=== PATIENT | female | born 1940 ===

== ENCOUNTER 2021-11-24 03:06 | Emergency (ER) | payer MEDICARE ==
[2021-11-24] MEDS ORDERED: MORPHINE 2 MG/ML CARPUJECT IVP STA (03:25)
[2021-11-24 03:31] LABS: BASOPHILS % (AUTO) 0.8 %; EOSINOPHILS # (AUTO) 0.2 10^3/uL (0.0-0.7); HCT - HEMATOCRIT 41.1 % (37.0-47.0); HGB - HEMOGLOBIN 14.1 g/dL (12.0-16.0); LYMPHOCYTES # (AUTO) 1.9 10^3/uL (1.5-3.5); MEAN CORPUSCULAR HEMOGLOBIN 33.7 pg (27.0-31.0); MEAN CORPUSCULAR HGB CONC 34.3 g/dL (32.0-36.0); MEAN CORPUSCULAR VOLUME 98.3 fL (81.0-99.0); MEAN PLATELET VOLUME 9.9 fL (7.9-10.8); MONOCYTES # (AUTO) 0.5 10^3/uL (0.0-1.0); MONOCYTES % (AUTO) 9.7 %; NEUTROPHILS # (AUTO) 2.3 10^3/uL (1.5-6.6); NEUTROPHILS % (AUTO) 46.3 %; PLT - PLATELET COUNT 220 10^3/uL (130-450); RED BLOOD COUNT 4.18 10^6/uL (4.20-5.40); RED CELL DISTRIBUTION WIDTH 12.1 % (12.0-15.0)
[2021-11-24] MEDS ORDERED: CLOPIDOGREL 300 MG TABLET PO STA (03:31)
[2021-11-24] MEDS ORDERED: ASPIRIN CHEW 81 MG TABLET PO STA (03:31)
--- NOTE | 2021-11-24 03:39 | ED Physician Documentation ---
PD HPI CHEST PAIN - Stated complaint Stated Complaint: nerve spasm - Chief complaint Chief Complaint: Cardiac - History obtained from History obtained from: Patient - History of Present Illness Timing - onset: Last night Location: Left chest, Left neck Radiation: Jaw Associated symptoms: Other (belching) - Additional information Additional information: 81-year-old female with history of neck and back pain, HTN, HLD presents by private vehicle for severe left-sided chest pain and neck pain that woke her from sleep at 0245 this morning. Patient states the pain is aching, constant with intermittent worsening, radiates upwards into her left jaw. States that she has had similar, intermittent, self-resolving pains in 2 days but never this severe. It woke her up in the middle the night and she told her to drive her into the ER. Took a baby aspirin earlier today. EKG obtained shortly after triage is concerning for possible inferior STEMI. PD PAST MEDICAL HISTORY - Past Medical History Past Medical History: Yes - Allergies Allergies/Adverse Reactions: Allergies Allergy/AdvReac Type Severity Reaction Status Date / Time No Known Drug Allergies Allergy Verified 11/24/21 03:21 PD ED PE NORMAL - Vitals Vital signs reviewed: Yes - General General: Alert and oriented X 3, Well developed/nourished, Other (uncomfortable, in pain) - HEENT HEENT: Atraumatic, PERRL, EOMI - Neck Neck: Supple, no meningeal sign, No bony TTP, No adenopathy - Cardiac Cardiac: RRR, Strong equal pulses - Respiratory Respiratory: No respiratory distress, Clear bilaterally - Abdomen Abdomen: Soft, Non tender, Non distended, No organomegaly - Back Back: No CVA TTP, No spinal TTP - Derm Derm: Normal color, Warm and dry, No rash - Extremities Extremities: No deformity, No tenderness to palpate, Normal ROM s pain, No edema - Neuro Neuro: Alert and oriented X 3, flight follower 2-12 intact, No motor deficit, No sensory deficit, Normal speech - Psych Psych: Normal mood, Normal affect Results - Vitals Vitals: Vital Signs - 24 hr 11/24/21 11/24/21 03:10 03:30 Temperature 36.7 C Heart Rate 71 60 Respiratory 18 17 Rate Blood Pressure 154/112 H 155/84 H O2 Saturation 100 95 Oxygen O2 Source Room air - EKG (time done) 0325 Rate: Rate (enter#) (67) Rhythm: NSR Ischemia: ST elevation c/w ischemia 0408 Rate: Rate (enter#) (66) Rhythm: NSR Ischemia: ST elevation c/w ischemia (RCA) - Labs Labs: Laboratory Tests 11/24/21 11/24/21 11/24/21 03:23 03:23 03:23 WBC 5.0 RBC 4.18 L Hgb 14.1 Hct 41.1 MCV 98.3 MCH 33.7 H MCHC 34.3 RDW 12.1 Plt Count 220 MPV 9.9 Neut # (Auto) 2.3 Lymph # (Auto) 1.9 [place] # (Auto) 0.5 Eos # (Auto) 0.2 Baso # (Auto) 0.0 Absolute Nucleated RBC 0.00 Nucleated RBC % 0.0 Sodium 139 Potassium 3.3 L Chloride 102 Carbon Dioxide 26 Anion Gap 11.0 BUN 32 H Creatinine 1.4 H Estimated GFR (MDRD) 36 L Glucose 135 H Calcium 9.5 Total Bilirubin 0.6 AST 29 ALT 21 Alkaline Phosphatase 71 Troponin I High Sens 679.5 H* Total Protein 6.7 Albumin 3.8 Globulin 2.9 Albumin/Globulin Ratio 1.3 PD MEDICAL DECISION MAKING - ED course Complexity details: reviewed results, re-evaluated patient, considered differential, d/w patient, other (no prior records) ED course: Patient complaining of left-sided chest pain and neck pain. Initial EKG taken at 3:18 AM concern for STEMI, however is too poor quality. Repeat performed at 3:25 AM does indeed show ST elevations in lead III, possible aVF, with reciprocal depressions in 1 and aVL. Is concerning for STEMI. Patient was loaded with aspirin and Plavix. Given bolus of heparin and started on heparin drip. Closest facility is 1 hour away. Patient was placed on cardiac pads, she was informed of her potential diagnosis and the intention to transfer her to [facility]. Patient expressed understanding of plan is in agreement at this time. EMS staff arrived to transfer patient expeditiously. At 0400 I received a call from the ED physician at [facility] stating that the media associate is requesting a repeat EKG, not convinced that patient EKG is STEMI. Repeat EKG obtained at 0408, findings similar to previous. Lab called, patient's high-sensitivity troponin is 680. This was relayed to ED physician at [facility]. At 0410 patient was transferred by EMS for interventional cardiology. Stable within capabilities at time of transfer. - Consults Consults: Consulted (name) (Dr. Pritesh Wilson at [facility]) - Critical Care Time(min): 40 Time Includes: Direct patient care, Review records, Reassess patient Data interpretation: Labs, Pulse ox, Prior EKG, Cardiac output Procedures included in critical care time: Peripheral IV, Blood draw Procedures excluded from critical care time: EKG, See progress note Departure - Departure Disposition: 02 Transfer Acute Care Hosp Clinical Impression: ST elevation (STEMI) myocardial infarction Qualifiers: Involved coronary artery: right coronary artery Qualified Code(s): I21.11 - ST elevation (STEMI) myocardial infarction involving right coronary artery Condition: Serious
[2021-11-24 03:43] LABS: ALBUMIN 3.8 g/dL (3.2-5.5); ALBUMIN/GLOBULIN RATIO 1.3 (1.0-2.2); BILIRUBIN,TOTAL 0.6 mg/dL (0.2-1.0); CALCIUM 9.5 mg/dL (8.5-10.3); CREATININE 1.4 mg/dL (0.4-1.0); POTASSIUM 3.3 mmol/L (3.5-5.0); TOTAL PROTEIN 6.7 g/dL (6.7-8.2)
[2021-11-24] MEDS ORDERED: HEPARIN 25000UNITS/500ML (D5W) 25,000 UNIT/500 ML BAG IV SCH (04:00)
[2021-11-24 04:09] VITALS: BP 155/84
== END 2021-11-24 04:24 | disposition short-term general hospital (02) ==
LOC: ED 03:06
DX: I21.3 ST elevation (STEMI) myocardial infarction of unspecified site (principal); I10 Essential (primary) hypertension
CPT/HCPCS: 36415; 80053; 84484; 85025; 93005; 96374; 96375; 99285; 99291; A9270

== ENCOUNTER 2021-11-24 11:09 | Outpatient (CLI) | payer MEDICARE | END 2021-11-24 11:10 | disposition short-term general hospital (02) | LOC: EMS 11:09 | PROVIDERS: ATTEND Emergency Medicine | DX: I21.3 ST elevation (STEMI) myocardial infarction of unspecified site (principal) | CPT/HCPCS: A0425; A0426 ==